=== PATIENT | female | born 1955 | race Caucasian/White ===

== ENCOUNTER 2016-05-23 12:47 | Day surgery (SDC) | payer OTHER ==
[2016-05-23 13:54] VITALS: BP 134/78; PULSE 70; RESP 16; TEMP 97; O2SAT 100
[2016-05-23 15:05] VITALS: BP 153/76; PULSE 70; RESP 16; TEMP 98.5; O2SAT 100
[2016-05-23 15:22] VITALS: BP 151/79; PULSE 68; RESP 16; O2SAT 100
--- NOTE | 2016-05-24 15:03 | RADRPT ---
EXAM DATE/TIME: 05/23/2016 13:40 [place] COMPARISON: No previous studies available for comparison. INDICATIONS : Ascites. MEDICAL HISTORY : Hypertension. Cirrhosis. A.FIB. Diabetes. CKD stage 4. Ascites. Ureteral stones. Gallstones. SURGICAL HISTORY : Total knee replacement, left. Total knee replacement, right. Carpal tunnel syndrome. ENCOUNTER: Initial ACUITY: 1 yr PAIN SCORE: 0/10 LOCATION: Right lower quadrant FLUID: Total volume of 5,500 of clear, gillian fluid was removed. Fluid was discarded. Paracentesis was therapeutic only. Post procedure scanning reveals no hematoma or other complication. TECHNIQUE: 1. Ultrasound guidance for abdominal paracentesis. 2. Paracentesis. The risks, benefits, and alternatives to ultrasound guided paracentesis were explained to the patient in detail including the risk of bleeding and infection. Written and verbal informed consent was obt ained. With the patient on the ultrasound table, ultrasound imaging was used to select the most appropriate approach for paracentesis. Overlying skin was prepped and draped in the usual sterile fashion and wi th a local anesthetic, a dermatotomy was made with an 11 blade scalpel. A 6 [place] [id number] ca theter was introduced into the peritoneal cavity and fluid was collected. The patient tolerated the procedure well and left the ultrasound suite in stable condition. CONCLUSION: Uncomplicated ultrasound guided paracentesis. Patient received albumin per protocol. Donaldo Winslow MD FACR on May 24, 2016 at 15:01 Board Certified Radiologist. This report was verified electronically.
== END 2016-05-23 15:48 | disposition home or self-care (01) ==
LOC: HRAD 12:47 → HRIP 12:47 → HRAD 15:48
PROVIDERS: ATTEND Family Medicine
DX: R18.8 Other ascites (principal); K74.69 Other cirrhosis of liver; I12.9 Hypertensive chronic kidney disease with stage 1 through stage 4 chronic kidney disease, or unspecified chronic kidney disease; N18.4 Chronic kidney disease, stage 4 (severe); E11.9 Type 2 diabetes mellitus without complications; I48.91 Unspecified atrial fibrillation
CPT/HCPCS: 49083; C1729